=== PATIENT | female | born 1970 | race Caucasian/White ===

== ENCOUNTER 2018-07-29 08:22 | Outpatient (CLI) | payer BC ==
--- NOTE | 2018-07-29 09:24 | MMO ---
Bilateral MAMMO Bilat Screen [facility]. CLINICAL HISTORY: Patient is 48 years old and is seen for screening. The patient has no family history of breast cancer. The patient has no personal history of cancer. VIEWS: The views performed were: bilateral craniocaudal with tomosynthesis and bilateral mediolateral oblique with tomosynthesis. MAMMOGRAM FINDINGS: There are scattered fibroglandular densities. There are no suspicious masses, calcifications or areas of architectural distortion. There are benign appearing calcifications in the right breast. There are no suspicious masses, suspicious calcifications, or new areas of architectural distortion. IMPRESSION: THERE IS NO MAMMOGRAPHIC EVIDENCE OF MALIGNANCY. A ROUTINE FOLLOW-UP MAMMOGRAM IN 1 YEAR IS RECOMMENDED. THE RESULTS OF THIS EXAM WERE SENT TO THE PATIENT. ACR BI-RADS Category 2 - Benign finding MAMMOGRAPHY NOTE: 1. A negative mammogram report should not delay a biopsy if a dominant of clinically suspicious mass is present. 2. Approximately 10% to 15% of breast cancers are not detected by mammography. 3. Adenosis and dense breasts may obscure an underlying neoplasm.
== END 2018-07-29 08:23 | disposition home or self-care (01) ==
LOC: BICMAMMO 08:22
PROVIDERS: ATTEND Family Medicine
DX: Z12.31 Encounter for screening mammogram for malignant neoplasm of breast (principal)
CPT/HCPCS: 77063; 77067

== ENCOUNTER 2018-07-31 10:35 | Outpatient (CLI) | payer BC ==
--- NOTE | 2018-07-31 11:25 | CT ---
CT ABDOMEN PELVIS WITHOUT CONTRAST: HISTORY:Abdominal pain, chronic kidney disease, nephrolithiasis, UTI, proteinuria, hematuria COMPARISON: None DISCLAIMER: Absence of oral and IV contrast reduces the sensitivity of the exam particularly for the evaluation of solid organs and bowel. FINDINGS: The lung bases are clear. No free air or free fluid is seen in the abdomen or pelvis. The patient is post cholecystectomy. There is no evidence of appendicitis. No calculi are seen in the kidneys, ureters or the urinary bladder. No hydroureteronephrosis noted on either side. Uterus and ovaries are present. There is a 1 cm fat-containing lesion in the left adnexa likely ovari an dermoid. Aortic diameter is normal. There are Mild degenerative changes in the spine. IMPRESSION: 1. No CT evidence of urinary tract calculi/obstruction or appendicitis. 2. A 1 cm left ovarian dermoid.
== END 2018-07-31 10:36 | disposition home or self-care (01) ==
LOC: CT 10:35
PROVIDERS: ATTEND Internal Medicine Nephrology
DX: N20.0 Calculus of kidney (principal); N18.1 Chronic kidney disease, stage 1; D27.1 Benign neoplasm of left ovary
CPT/HCPCS: 36415; 74176; 80048; 81001; 82570; 84156; 87086